=== PATIENT | male | born 1980 | race Caucasian/White ===

== ENCOUNTER 2017-04-09 23:20 | Emergency (ER) | payer OTHER ==
[2017-04-09] MEDS ORDERED: NORCO 5/325 MG PO ONE (23:24)
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
[2017-04-09] MEDS ORDERED: NORCO 5/325 MG ONE (23:57)
[2017-04-10 00:24] VITALS: BP 110/65; PULSE 73; O2SAT 100
[2017-04-10] MEDS ORDERED: BACIGUENT PACKET ONE (00:46)
[2017-04-10] MEDS ORDERED: BACIGUENT PACKET TP ONE (00:47)
[2017-04-10] MEDS ORDERED: NORCO 5/325 MG PO ONE (00:50)
[2017-04-10] MEDS ORDERED: NORCO 5/325 MG ONE (00:51)
--- NOTE | 2017-04-10 09:06 | XRAY ---
Indication: Fifth digit pain following injury. Comparison: None 3 views of the left hand obtained. No bony, articular, or soft tissue abnormalities.
== END 2017-04-10 00:58 | disposition home or self-care (01) ==
LOC: ED 23:20
DX: S60.052A Contusion of left little finger without damage to nail, initial encounter (principal); S60.417A Abrasion of left little finger, initial encounter; W22.8XXA Striking against or struck by other objects, initial encounter
CPT/HCPCS: 73130; 99283; A9270-GY

== ENCOUNTER 2017-05-28 08:46 | Emergency (ER) | payer OTHER ==
[2017-05-28] MEDS ORDERED: Marcaine 0.5%/Epinephrine 10 ML IJ ONE (08:58)
[2017-05-28] MEDS ORDERED: Marcaine 0.5%/Epinephrine 10 ML ONE (09:02)
--- NOTE | 2017-05-28 09:04 | ERPHSYRPT ---
- History of Present Illness Time Seen by Provider: 05/28/17 08:48 Source: patient Exam Limitations: no limitations Physician History: patient with a toothaches since last pm; filling fell out; local pain post lower left last molar; no fever; no trauma; no trouble swallowing; took naproxen last pm and this am; went to work; feeling shaky in addition toothache ; N without emesis; no fever; no trouble swallowing or breathing; hx of anxiety ; took meds; no other complaints or illnesses Timing/Duration: abrupt onset (funny feeling - lightheadedness; no palpatations ; CP or SOB), gradual onset (toothache), this morning (funny feeling), yesterday (toothaches) Severity: moderate ENT Location: dental (left post lower) Prearrival Treatment: over the counter meds Modifying Factors: Improves With: nothing Associated Symptoms: dizziness, tooth pain, other (anxiety) Allergies/Adverse Reactions: No Known Drug Allergies Allergy (Verified 05/28/17 09:00) Home Medications: Desvenlafaxine Succinate [Pristiq ER] 50 mg PO DAILY 05/28/17 [History] Gabapentin [Neurontin] 400 mg PO HS 05/28/17 [History] Hx Tetanus, Diphtheria Vaccination/Date Given: No Hx Influenza Vaccination/Date Given: No Hx Pneumococcal Vaccination/Date Given: No - Review of Systems Constitutional: No Symptoms Eyes: No Symptoms Ears, Nose, & Throat: Other (tooth ache post lower molra), No Ear Pain, No Tinnitus, No Nose Pain, No Mouth Pain Respiratory: No Cough, No Dyspnea, No Wheezing Cardiac: No Chest Pain, No Palpitations, No Syncope Abdominal/Gastrointestinal: Nausea, No Abdominal Pain, No Vomiting, No Diarrhea Genitourinary Symptoms: No Symptoms Musculoskeletal: No Symptoms Skin: No Symptoms Neurological: Dizziness, No Headache, No Paralysis Psychological: Anxiety, No Alcohol Abuse, No Drug Abuse, No Suicidal Ideations Endocrine: No Symptoms Hematologic/Lymphatic: No Symptoms Immunological/Allergic: No Symptoms - Past Medical History Pertinent Past Medical History: Yes Neurological History: No Pertinent History ENT History: No Pertinent History Cardiac History: No Pertinent History Respiratory History: No Pertinent History Endocrine Medical History: No Pertinent History Musculoskeletal History: No Pertinent History GI Medical History: No Pertinent History History: No Pertinent History Psycho-Social History: Anxiety, Other Male Reproductive Disorders: No Pertinent History Other Medical History: OCD, ANGER DISORDER - Past Surgical History Past Surgical History: No Neuro Surgical History: No Pertinent History Cardiac: No Pertinent History Respiratory: No Pertinent History Gastrointestinal: No Pertinent History - Social History Smoking Status: Current every day smoker How long have you smoked: 10 Exposure to second hand smoke: Yes Alcohol Use: None Drug Use: none Patient Lives Alone: No Significant Family History: no pertinent family hx - Nursing Vital Signs Nursing Vital Signs: Initial Vital Signs Temperature 97.3 F 05/28/17 08:53 Pulse Rate 78 05/28/17 08:53 Respiratory Rate 16 05/28/17 08:53 Blood Pressure 120/74 05/28/17 08:53 O2 Sat by Pulse Oximetry 97 05/28/17 08:53 Pain Scale Pain Intensity 2 - Physical Exam General Appearance: mild distress (anxious and toothaches), alert, anxiety, thin Eye Exam: bilateral eye: normal inspection, PERRL, EOMI Ear Exam: bilateral ear: auricle normal, canal normal, TM normal Nasal Exam: normal inspection, No dried blood, No foreign body Throat Exam: normal, pharynx normal, dental tenderness (post lower molar; caries with filling missing), moist mucus membranes, No excessive drooling, No trismus, No voice changes Neck Exam: normal inspection, non-tender, supple, full range of motion, trachea midline, No JVD, No lymphadenopathy (R), No lymphadenopathy (L) Cardiovascular/Respiratory Exam: chest non-tender, normal breath sounds, regular rate/rhythm, heart sounds normal, no ecchymosis, no JVD, no M/R/G, no respiratory distress Abdominal Exam: non-tender, soft, no organomegaly Neurologic Exam: alert, oriented x 3, cooperative, legal entity controller II-XII nml as tested, normal mood/affect, nml cerebellar function, nml station & gait Skin Exam: normal color, warm, dry, No rash SpO2 Interpretation: normal SpO2: 97 Oxygen Delivery: Room Air Procedures - Additional Procedures Progress: dental nerve block with 3 cc bipuvicaine given; patient tolerated well; good results - Course Nursing assessment & vital signs reviewed: Yes Rhythm Strip: Rate (75), Normal Sinus Rhythm Ordered Tests: Active Orders 24 hr Category Date Time Status Glue Machine Operator STAT Care 05/28/17 09:19 Active BMP Stat Lab 05/28/17 09:14 Received CBC W DIFF Stat Lab 05/28/17 09:14 Completed Medication Summary Discontinued Medications Generic Name Dose Route Start Last Admin Trade Name Kristine PRN Reason Stop Dose Admin Bupivacaine HCl/Epinephrine Bitart 5 ml 05/28/17 08:58 05/28/17 09:03 [place] 0.5%/Epinephrine 10 Ml IJ 05/28/17 08:59 5 ml STAT ONE Administration Bupivacaine HCl/Epinephrine Bitart Confirm 05/28/17 09:02 [place] 0.5%/Epinephrine 10 Ml Administered 05/28/17 09:03 Dose 20 ml .ROUTE .STK-MED ONE Lidocaine HCl 1 ml 05/28/17 09:13 05/28/17 09:26 Xylocaine 4% Topical Solution 50 Ml TOP 05/28/17 09:14 1 ml STAT ONE Administration Lab/Rad Data: Laboratory Result Diagrams 05/28/17 09:14 Laboratory Results 05/28/17 Range/Units 09:14 WBC 7.3 (4.0-10.5) K/mm3 RBC 5.43 (4.1-5.6) M/mm3 Hgb 15.6 (12.5-18.0) gm/dl Hct 45.7 (42-50) % MCV 84.2 (78-100) fl MCH 28.7 (26-32) pg MCHC 34.1 (32-36) g/dl RDW 13.5 (11.5-14.0) % Plt Count 217 (150-450) K/mm3 MPV 10.1 H (6-9.5) fl Gran % 67.5 H (36.0-66.0) % Lymphocytes % 21.6 L (24.0-44.0) % Monocytes % 9.8 (0.0-12.0) % Eosinophils % 1.0 (0.00-5.0) % Basophils % 0.1 (0.0-0.4) % Basophils # 0.01 (0-0.4) reviewed - Progress Progress: improved (after dental block), re-examined (after meds ) Progress Note: 05/28/17 09:06 and check labs; will give dental block and recheck and get rhythm strip- NSR at 75 05/28/17 09:11 05/28/17 09:32 topical lidocaine appied; nerve block with 3 cc bipuvicain performed;patient tolereated well; will observed and recheck; labs cbc and bmp all wnl 05/28/17 09:45 rechecked and good releif; other symptoms resolved; treatment plan and instructions given; follow up DDS - see social service for help Counseled pt/family regarding: lab results, diagnosis, need for follow-up - Departure Time of Disposition: 09:46 Departure Disposition: Home Clinical Impression: Dental caries Condition: Stable Critical Care Time: No Referrals: JONG PATRICIO [Primary Care Provider] - Instructions: Tooth Decay Additional Instructions: soft diet; follow up DDS- call social work case manager for assitance;continue Naproxyn - take after food with full glass of water Follow-up with family doctor as directed. Call for appointment. Return if any problems. If you smoke please stop. Call or follow up with your family doctor for assistance if you need it to stop. Please wear your seatbelt when driving. Have a nice day. Thank you for allowing us to participate in your care today. :o) Dr Jimmy Hooks Prescriptions: Cephalexin Mh 250 mg [Keflex 250 mg] 250 mg PO QID #40 capsule
[2017-05-28] MEDS ORDERED: Pre-Attached Lta Kit TP ONE (09:12)
[2017-05-28] MEDS ORDERED: XYLOCAINE 4% TOPICAL SOLUTION 50 ML TOP ONE (09:13)
[2017-05-28 09:20] LABS: BASOPHIL % 0.1 % (0.0-0.4); Granulocytes % 67.5 % (36.0-66.0); Lymphocytes % 21.6 % (24.0-44.0); Mean Cell Volume 84.2 fl (78-100); Mean Corpuscular Hemoglobin 28.7 pg (26-32); Mean Platelet Volume 10.1 fl (6-9.5); Monocytes % 9.8 % (0.0-12.0); Platelet Count 217 K/mm3 (150-450); Red Blood Count 5.43 M/mm3 (4.1-5.6); Red Cell Distribution Width 13.5 % (11.5-14.0); White Blood Count 7.3 K/mm3 (4.0-10.5)
[2017-05-28 09:32] LABS: ANION GAP 12.7 MEQ/L (5-15); BLOOD UREA NITROGEN 18 mg/dL (9-20); CHLORIDE 104 mEq/L (98-107); Carbon Dioxide 28.4 mEq/L (21-32); Glucose 97 MG/DL (70-110); SODIUM 141 mEq/L (136-145)
[2017-05-28 10:16] VITALS: BP 120/74; PULSE 78; O2SAT 97
== END 2017-05-28 10:18 | disposition home or self-care (01) ==
LOC: ED 08:46
DX: K02.9 Dental caries, unspecified (principal); R42 Dizziness and giddiness
CPT/HCPCS: 36415; 80048; 85025; 93041; 99283

== ENCOUNTER 2023-06-23 06:17 | Day surgery (SDC) | payer OTHER ==
[2023-06-23] MEDS ORDERED: Lactated Ringers 1,000 ML IV SCH (07:00)
[2023-06-23 07:08] VITALS: RESP 18
[2023-06-23] MEDS ORDERED: Lactated Ringers 1,000 ML IV ONE (07:11)
[2023-06-23] MEDS ORDERED: Versed 2 MG/2 ML Injection ONE (08:01)
[2023-06-23] MEDS ORDERED: DIPRIVAN 200 MG/20 ML IV ONE ×2 (08:01→09:09)
[2023-06-23 09:10] VITALS: BP 104/70; PULSE 65; TEMP 97.2; O2SAT 99
[2023-06-23] MEDS ORDERED: Zofran 4 MG/2 ML VIAL ONE (09:10)
[2023-06-23] MEDS ORDERED: Decadron 4 MG INJ ONE (09:10)
[2023-06-23] MEDS ORDERED: TORAdol 30 mg Injection ONE (09:10)
--- NOTE | 2023-06-23 10:19 | OP ---
SURGERY DATE: 06/23/2023 SURGERY TIME: 801 PREOPERATIVE DIAGNOSIS: 1. POSITIVE HELICOBACTER PYLORI BREATH TEST. 2. COMPLAINTS OF ABDOMINAL BLOATING. POSTOPERATIVE DIAGNOSIS: 1. MILD GASTRITIS. PROCEDURE: 1. Esophagogastroduodenoscopy with cold forceps biopsy of the gastric antrum. SURGEON: Dr. Vizcaino. ANESTHESIA: MAC. Medication given by the Anesthesia Department. BRIEF HISTORY: The patient is a 42 year-old [facility] patient presenting now for endoscopic evaluation. He reports he has had at least a year of abdominal bloating. He reports he had a helicobacter pylori breath test which was positive. The patient was treated with antibiotics which he finished approximately 2 weeks ago. The patient reports he is still having his problems despite the treatment. The patient was felt to need to have endoscopic evaluation. He was appraised of the risks of the procedure including the risk of perforation, phlebitis, untoward reaction to medication, bleeding, and missed lesions. The patient verbalized his understanding and desired to have the procedure performed. DESCRIPTION OF PROCEDURE: The patient was given the medications by the Anesthesia Department. It was noted by the anesthesia personnel that the patient took a large amount of Propofol to induce the anesthesia. The patient was placed in the left lateral decubitus position. A bite block was placed. The flexible Olympus gastroscope was used to intubate the oropharynx. A view of the larynx was obtained and was normal. The scope was easily introduced in the esophagus which was normal throughout its length. The stomach was entered where normal gastric rugal folds were seen and these distended nicely with the insufflation of air. The scope was passed along the greater curvature of the stomach to the antrum. The pylorus was encountered and intubated. The duodenum was inspected and found to be normal. The scope was withdrawn towards the stomach. Again, a retroflex view was obtained of the lesser curvature, fundus, and cardia regions of the stomach and these appeared to be essentially normal. The scope was redirected towards the gastric antrum. There was mild erythema noted. Biopsies were taken from the gastric antrum to rule out the presence of Helicobacter pylori type organisms. The scope was then removed from the patient who tolerated the procedure well and was sent back to outpatient recovery in good condition.
== END 2023-06-23 09:15 | disposition home or self-care (01) ==
LOC: SDC 06:17
PROVIDERS: ATTEND Family Medicine
DX: K29.70 Gastritis, unspecified, without bleeding (principal); B96.81 Helicobacter pylori [H. pylori] as the cause of diseases classified elsewhere; R14.0 Abdominal distension (gaseous)
CPT/HCPCS: J1100; J1885; J2250; J2405; J2704

== ENCOUNTER 2025-09-13 18:19 | Emergency (ER) | payer BC | END 2025-09-13 19:13 | disposition left against medical advice (07) | LOC: ED 18:19 | DX: Z53.21 Procedure and treatment not carried out due to patient leaving prior to being seen by health care provider (principal) ==